=== PATIENT | female | born 2000 | race African-American/Black ===

== ENCOUNTER 2019-06-06 12:41 | Inpatient (IN) | payer MEDICAID, OTHER ==
[~2019-06-06] VITALS: Ht 177.8 cm; Wt 68.9 kg
[2019-06-06] MEDS ORDERED: SODIUM CHLORIDE 0.9% 1000ML BAG (SEPSIS BOLUS) IV ONE (14:00)
[2019-06-06 14:47] LABS: BASOPHILS % 0.5 % (0.0-2.0); EOSINOPHILS % 3.6 % (0.0-5.0); HEMATOCRIT. 38.9 % (36.0-48.0); HEMOGLOBIN. 12.7 g/dL (12.0-16.0); LYMPHOCYTES % 17.2 % (20.0-50.0); MEAN CORPUSCULAR HEMOGLOBIN 23.9 pg (28.0-32.0); MEAN CORPUSCULAR VOLUME 72.7 fL (81.0-99.0); MEAN PLATELET VOLUME 8.3 fl (7.4-10.4); MONOCYTES % 9.5 % (2.0-8.0); NEUTROPHILS % 69.2 % (40.0-76.0); PLATELET 230 x1000/uL (130-400); RED BLOOD CELL COUNT 5.34 mill/uL (4.2-5.4); RED CELL DISTRIBUTION WIDTH 16.8 % (11.6-14.6)
[2019-06-06 14:54] LABS: CHLORIDE 102 mEq/L (98-107)
[2019-06-06 14:55] LABS: INR 1.1; PROTHROMBIN TIME 11.1 sec (9.6-11.0)
[2019-06-06 15:03] LABS: CLARITY URINE CLEAR (CLEAR); COLOR URINE YELLOW (YELLOW); KETONES URINE TRACE (NEGATIVE); LEUKOCYTE ESTERASE URINE TRACE (NEGATIVE); NITRITE URINE NEGATIVE (NEGATIVE); OCCULT BLOOD URINE 2+ (NEGATIVE); PROTEIN URINE 1+ (NEGATIVE); SPECIFIC GRAVITY URINE 1.026 (1.005-1.030)
[2019-06-06 15:18] LABS: *BARBITURATES SCREEN URINE NEGATIVE (NEGATIVE); *BENZODIAZEPINES SCREEN URINE NEGATIVE (NEGATIVE); *COCAINE SCREEN URINE NEGATIVE (NEGATIVE)
[2019-06-06 15:19] LABS: *AMPHETAMINES SCREEN URINE NEGATIVE (NEGATIVE); CANNABINOID URINE SCREEN NEGATIVE (NEGATIVE); METHADONE URINE SCREEN NEGATIVE (NEGATIVE); OPIATES URINE SCREEN NEGATIVE (NEGATIVE); PHENCYCLIDINE URINE SCREEN NEGATIVE (NEGATIVE)
[2019-06-06] MEDS ORDERED: LEVOFLOXACIN 500MG PREMIX 100 ML IV ONE (17:30)
[2019-06-06] MEDS ORDERED: AZITHROMYCIN 250 MG TABLET PO SCH (17:30)
[2019-06-06] MEDS ORDERED: IPRATROPIUM/ALBUTEROL 0.5-3(2.5)MG/3ML NEB HHN PRN (19:30)
[2019-06-06] MEDS ORDERED: ACETAMINOPHEN 325MG TABLET PO PRN (19:30)
[2019-06-06] MEDS ORDERED: ONDANSETRON HCL 4MG/2ML INJ IV PRN (19:30)
[2019-06-06 21:00] VITALS: BP 116/82
[2019-06-06] MEDS ORDERED: CEFTRIAXONE 1 G PREMIX 50 ML IV SCH (23:00)
[2019-06-07] VITALS: BP 103/72
[2019-06-07 04:00] VITALS: BP 104/74
[2019-06-07 08:00] VITALS: BP 111/73
[2019-06-07 08:07] LABS: BASOPHILS % 0.6 % (0.0-2.0); EOSINOPHILS % 4.6 % (0.0-5.0); HEMATOCRIT. 35.6 % (36.0-48.0); HEMOGLOBIN. 11.4 g/dL (12.0-16.0); LYMPHOCYTES % 17.2 % (20.0-50.0); MEAN CORPUSCULAR HEMOGLOBIN 23.6 pg (28.0-32.0); MEAN CORPUSCULAR VOLUME 73.2 fL (81.0-99.0); MEAN PLATELET VOLUME 8.6 fl (7.4-10.4); NEUTROPHILS % 68.6 % (40.0-76.0); PLATELET 230 x1000/uL (130-400); RED BLOOD CELL COUNT 4.86 mill/uL (4.2-5.4); RED CELL DISTRIBUTION WIDTH 16.6 % (11.6-14.6)
[2019-06-07 09:04] LABS: CHLORIDE 105 mEq/L (98-107)
[2019-06-07 12:00] VITALS: BP 110/76
[2019-06-07 16:00] VITALS: BP 113/76
[2019-06-07] MEDS: AZITHROMYCIN 500 MG TABLET PO SCH (17:29)
[2019-06-07] MEDS: GUAIFENESIN-DM 200MG-20MG/10ML UDC PO PRN ×2 (17:35→21:50)
[2019-06-07 20:00] VITALS: BP 111/81
[2019-06-07] MEDS ORDERED: CEFTRIAXONE 1 G PREMIX 50 ML IV SCH (21:00)
[2019-06-07] MEDS: GUAIFENESIN 600MG ER TABLET PO SCH (21:50)
[2019-06-08] VITALS: BP 115/57
[2019-06-08 04:00] VITALS: BP 108/73
[2019-06-08 08:00] VITALS: BP 110/68
[2019-06-08] MEDS: AZITHROMYCIN 500 MG TABLET PO SCH (08:57)
[2019-06-08] MEDS: GUAIFENESIN-DM 200MG-20MG/10ML UDC PO PRN (08:57)
[2019-06-08] MEDS: GUAIFENESIN 600MG ER TABLET PO SCH (09:00)
[2019-06-08 11:07] VITALS: BP 106/63
[2019-06-08] MEDS ORDERED: AZIT500T5 MT (14:40)
[2019-06-08 17:33] VITALS: BP 112/64
== END 2019-06-08 20:50 | disposition home or self-care (01) | DRG 720 ==
LOC: ER 13:12 → 7WST 17:46 → EDBEDREQSVC 18:01 → EDBEDREQ 18:09 → EDBEDREQTM 18:09 → ENRESERV 18:31 → 7WST 21:39
PROVIDERS: ADMIT Internal Medicine; ATTEND Internal Medicine
DX: A41.9 Sepsis, unspecified organism (principal); J96.00 Acute respiratory failure, unspecified whether with hypoxia or hypercapnia; J18.1 Lobar pneumonia, unspecified organism; Z87.891 Personal history of nicotine dependence; N39.0 Urinary tract infection, site not specified
CPT/HCPCS: 36415; 71045; 80048; 80305; 81003; 83605; 84145; 84484; 87804; 93005; 96361; 96365; 96366; 99291; J0696; J1956; J7030

== ENCOUNTER 2020-11-18 16:06 | Emergency (ER) | payer OTHER ==
[~2020-11-18] VITALS: Ht 175.3 cm; Wt 72.0 kg
[~2020-11-18 16:06] MED LIST: AZIT500T8 MT
[2020-11-18 18:09] LABS: CLARITY URINE CLOUDY (CLEAR); COLOR URINE YELLOW (YELLOW); KETONES URINE TRACE (NEGATIVE); LEUKOCYTE ESTERASE URINE 2+ (NEGATIVE); NITRITE URINE NEGATIVE (NEGATIVE); OCCULT BLOOD URINE 3+ (NEGATIVE); PH URINE 6.5 (4.5-8.0); PROTEIN URINE 1+ (NEGATIVE); SPECIFIC GRAVITY URINE 1.024 (1.005-1.030); UROBILINOGEN URINE 0.2 E.U./dL (0.2-1.0)
[2020-11-18 19:14] LABS: BASOPHILS % 1.1 % (0.0-2.0); EOSINOPHILS % 0.3 % (0.0-5.0); HEMATOCRIT. 34.2 % (36.0-48.0); HEMOGLOBIN. 11.2 g/dL (12.0-16.0); LYMPHOCYTES % 25.5 % (20.0-50.0); MEAN CORPUSCULAR HEMOGLOBIN 23.2 pg (28.0-32.0); MEAN CORPUSCULAR VOLUME 70.6 fL (81.0-99.0); MEAN PLATELET VOLUME 7.8 fl (7.4-10.4); MONOCYTES % 7.6 % (2.0-8.0); NEUTROPHILS % 65.5 % (40.0-76.0); PLATELET 274 x1000/uL (130-400); RED BLOOD CELL COUNT 4.84 mill/uL (4.2-5.4); RED CELL DISTRIBUTION WIDTH 17.3 % (11.6-14.6)
[2020-11-18 19:20] LABS: CHLORIDE 105 mEq/L (98-107)
[2020-11-18] MEDS ORDERED: CEFP200T14 MT (22:30)
[2020-11-18] MEDS ORDERED: HYDROCODONE/ACETAMINOPHEN 5/325MG TABLET PO ONE (22:45)
[2020-11-18 22:50] VITALS: BP 121/69
== END 2020-11-18 23:45 | disposition home or self-care (01) ==
LOC: ER 16:06
DX: N39.0 Urinary tract infection, site not specified (principal)
CPT/HCPCS: 36415; 74176; 80053; 81003; 81025; 85025; 99284

== ENCOUNTER 2021-10-25 22:27 | Emergency (ER) | payer MEDICAID, OTHER ==
[~2021-10-25] VITALS: Ht 175.3 cm; Wt 68.0 kg
[~2021-10-25 22:27] MED LIST changes: +CEFP200T14 MT
[2021-10-25 23:53] VITALS: BP 120/82
[2021-10-26 00:49] LABS: EOSINOPHILS % 1.2 % (0.0-5.0); LYMPHOCYTES % 38.9 % (20.0-50.0); MEAN CORPUSCULAR HEMOGLOBIN 24.1 pg (28.0-32.0); MEAN CORPUSCULAR VOLUME 72.6 fL (81.0-99.0); NEUTROPHILS % 51.9 % (40.0-76.0); PLATELET 256 x1000/uL (130-400); RED BLOOD CELL COUNT 4.55 mill/uL (4.2-5.4); RED CELL DISTRIBUTION WIDTH 18.4 % (11.6-14.6)
[2021-10-26 00:56] LABS: CHLORIDE 106 mEq/L (98-107)
[2021-10-26 01:21] LABS: B-HCG QUANTITATIVE 915 mIU/mL (<3)
== END 2021-10-26 03:08 | disposition home or self-care (01) ==
LOC: ER 22:27
DX: O03.4 Incomplete spontaneous abortion without complication (principal)
CPT/HCPCS: 36415; 76801; 80053; 84702; 85025; 99284

== ENCOUNTER 2021-10-28 18:24 | Emergency (ER) | payer MEDICAID ==
[~2021-10-28] VITALS: Ht 175.3 cm; Wt 69.0 kg
[2021-10-28 20:34] LABS: BASOPHILS % 0.8 % (0.0-2.0); EOSINOPHILS % 0.6 % (0.0-5.0); HEMOGLOBIN. 11.1 g/dL (12.0-16.0); LYMPHOCYTES % 32.2 % (20.0-50.0); MEAN CORPUSCULAR HEMOGLOBIN 23.9 pg (28.0-32.0); MEAN CORPUSCULAR VOLUME 72.9 fL (81.0-99.0); MEAN PLATELET VOLUME 7.9 fl (7.4-10.4); MONOCYTES % 5.9 % (2.0-8.0); NEUTROPHILS % 60.5 % (40.0-76.0); PLATELET 260 x1000/uL (130-400); RED BLOOD CELL COUNT 4.66 mill/uL (4.2-5.4); RED CELL DISTRIBUTION WIDTH 18.2 % (11.6-14.6)
[2021-10-28 20:44] LABS: CHLORIDE 106 mEq/L (98-107)
[2021-10-28 21:08] LABS: B-HCG QUANTITATIVE 1685 mIU/mL (<3)
[2021-10-28 23:50] VITALS: BP 118/77
== END 2021-10-28 23:50 | disposition home or self-care (01) ==
LOC: ER 19:09
DX: O20.0 Threatened abortion (principal); Z3A.01 Less than 8 weeks gestation of pregnancy
CPT/HCPCS: 36415; 76830; 76856; 80053; 81025; 84702; 85025; 86850; 86900; 99284